=== PATIENT | female | born 1985 ===

== ENCOUNTER 2018-04-08 23:33 | Inpatient (IN) | payer MEDICAID ==
[2018-04-08] MEDS: Lactated Ringer's 1,000 ML IV SCH (23:35)
[2018-04-08 23:37] VITALS: BMI 22.2
[2018-04-08] MEDS ORDERED: Lactated Ringer's 1,000 ML IV SCH (23:45)
[2018-04-08] MEDS ORDERED: ceFAZolin 1 GM in Sodium Chloride 0.9% 100 ML IVPB ONE (23:46)
[2018-04-08 23:56] LABS: BASO # 0.1 K/uL (0.0-0.2); BASO % 0.7 % (0.0-2.0); EOS # 0.1 K/uL (0.0-0.7); HEMOGLOBIN 12.3 g/dL (12.0-16.0); LYMPH # 2.3 K/uL (1.0-4.3); LYMPH % 25.6 % (20.0-40.0); MEAN CELL VOLUME 93.6 fl (81.0-99.0); MEAN CORPUSCULAR HEMOGLOBIN 31.4 pg (27.0-31.0); MEAN CORPUSCULAR HGB CONC 33.6 g/dL (33.0-37.0); MEAN PLATELET VOLUME 9.7 fl (7.2-11.7); MONO # 0.6 K/uL (0.0-0.8); MONO % 6.6 % (0.0-10.0); NEUT # 5.9 K/uL (1.8-7.0); NEUT % 66.1 % (50.0-75.0); NRBC % 0.1 % (0.0-0.0); RBC 3.93 Mil/uL (3.80-5.20); RED CELL DISTRIBUTION WIDTH 13.5 % (11.5-14.5); WHITE BLOOD COUNT 8.9 K/uL (4.8-10.8)
[2018-04-09] MEDS: Lactated Ringer's 1,000 ML IV SCH (00:01)
[2018-04-09] MEDS ORDERED: Morphine 1 mg/ml preservative-free Inj(Duramorph) ONE (00:22)
[2018-04-09] MEDS ORDERED: DiphenhydrAMINE 50 mg/ml Inj IVP PRN ×2 (00:53→04:03)
[2018-04-09] MEDS ORDERED: Oxycodone/Acetaminophen 5/325 mg Tab PO PRN (01:23)
--- NOTE | 2018-04-09 01:32 | OBADHP ---
Datetime: 04/08/2018 23:35 Admit Comment, IP Provider: 32 yo EGA 35.1 confirmed with US at 12 weeks presentsa a direct tra nsfer from [facility] due to SROM. Pt reports gross pink fluid per vagina, starting at 4 hours p rior to admission. Reports: FM, CTX; Denies: VB ROS: reports mild pressure like headaches and dizziness. Denies: CP/SOB/N/V/D/C, dysuria PNC: NRafiq Cruz: Denies complications during this . Last visit was today and GBS cultures were sent obhx: SAB at 4 wks pmhx: none famhx: dm soc: denies smoking, etoh, illicit drug use surg: R inguinal hernia repaired x 2 (2011 and 2014); lasix eye and tonsilectomy NKDA Meds: PNV Gen: AAOX3; in mild distress with each contraction Cardiac: S1S2, no murmurs Lungs: CTA bilaterally Abdo: gravid CVA: negative calves nontender Pelvic: grossly ruptured with clear fluid bedside us: breech presentation 32 yo IUP 35.1 SROM -Admit to L_d -plan for c/s -Labs: CBC, T_S -IVF: LR BOLUS 1 L -Abx: Ancef 1 gm IV -Consent obtained by Dr. Ama kay Dr. Ama Gray MD PGY1 Addendum: at 35 weeks and 2 days gestational age presented with spontaneous rupture membranes, 3 cm di lated, and breech presentation. Patient grossly ruptured on exam. Bedside ultrasound confirmed ultras ound. Discussed with patient the need for section due to early labor, ruptured membranes and breech presentation area discussed with patient the risks, benefits, alternatives of surgery and all patient questions answered. Patient consented for procedure. All patient questions answered. Anesthe carley notified. Pelvic Type - PN: Adequate Extremities - PN: Normal Abdomen - PN: Normal Back - PN: Normal Breast - PN: Not Done Lungs - PN: Normal Heart - PN: Normal Thyroid - PN: Not Done Neurologic - PN: Normal HEENT - PN: Normal General - PN: Normal FHR - Baseline A Provider: 130 IP Hx Assessment: The History has been Reviewed and is Current Vital Signs Provider: Reviewed; Within Normal Limits IP Chief Complaint: Uterine contractions; Suspected ruptured membranes NICHD Variability Prov Fetus A: Moderate 6-25bpm NICHD Accel Fetus A IP Provider: [id number] FHR Category Provider Fetus A: Category I NICHD Decel Fetus A IP Provider: None Dilatation, Provider: 3 Genitourinary Exam: Normal DTRs - PN: Not Done IP Adm Impression: , intrauterine ; Ruptured Membranes IP Admit Plan: Admit to unit; Initiate Section protocol
--- NOTE | 2018-04-09 01:59 | OBDS ---
DELIVERY PERSONNEL Delivery Doctor: Miguel Angel Serrato MD Microgrinder Operator: Hanh Pulido RN/ Bucky Land RN Anesthesiologist: Ross Mckinnon MD Resident: Leonardo Gray MATERNAL INFORMATION Delivery Anesthesia: Spinal Medications in Delivery: Pitocin Estimated Blood Loss (ml): 800 Placenta Cultured: No Maternal Complications: Premature Rupture of Membranes Provider Comments: Primary low flap transverse section via Pfannenstiel incision. Patient delivered viable with Apgars of 9 and 9 at one and 5 minutes respectively. Francisco br eech presentation. Delivery uncomplicated. Normal uterus, normal tubes and ovaries bilaterally. Estimated blood loss 800 mL Fluids 1100 mL lactated Ringer's Urine output 900 mL of clear urine No complications. Patient tolerated surgery well. LABOR SUMMARY EDC: 05/12/2018 00:00 No. Babies in Womb: 1 Attempted: No Labor Anesthesia: Spinal LABOR INFORMATION Reason for Induction: Not Applicable Oxytocin: N/A Group B Beta Strep: Not Done Steroids Given: None MEMBRANES Membranes Rupture Method: Spontaneous Rupture of Membranes: 04/08/2018 20:10 Length of Rupture (hrs): 4.53 Amniotic Fluid Color: Clear Amniotic Fluid Amount: Moderate STAGES OF LABOR Stage 3 hrs: 0 Stage 3 min: 1 CSECTION DELIVERY Primary Indication: Breech Presentation Secondary Indication: Other Other Secondary Indication: PPROM, Labor CSection Urgency: Non Elective CSection Incidence: Primary Labor: Labor Elective: Nonelective CSection Incision: Lower Uterine Transverse BABY A INFORMATION Delivery Date/Time: 04/09/2018 00:42 Method of Delivery: Born in Route : No : N/A Forceps: N/A Vacuum Extraction: N/A Shoulder Dystocia : No SHOULDER DYSTOCIA BABY A Delivery Date/Time: 04/09/2018 00:42 PRESENTATION/POSITION BABY A Presentation: Breech Breech Presentation: Francisco PLACENTA INFORMATION BABY A Placenta Delivery Time : 04/09/2018 00:43 Placenta Method of Delivery: Expressed Placenta Status: Delivered SCORES BABY A Heart Rate 1 min: >100 bpm Resp Effort 1 min: Good Cry Reflex Irritability 1 min: Cough or Sneeze or Pulls Away Muscle Tone 1 min: Active Motion Color 1 min: Body Sl[place], Extremities Blue Resuscitation Effort 1 min: Tactile Stimulation SCORE 1 MIN: 9 Heart Rate 5 min: >100 bpm Resp Effort 5 min: Good Cry Reflex Irritability 5 min: Cough or Sneeze or Pulls Away Muscle Tone 5 min: Active Motion Color 5 min: Body Sl[place], Extremities Blue Resuscitation Effort 5 min: Tactile Stimulation SCORE 5 MIN: 9 INFANT INFORMATION BABY A Gestational Age at Delivery: 35.1 Gestational Status: Outcome : Liveborn Condition : Stable Infant Sex: Female IDENTIFICATION/MEDS BABY A ID Band Number: [id number] WEIGHT/LENGTH BABY A Birthweight (gms): 2350 Infant Weight (lb): 5 Weight (oz): 3 CORD INFORMATION BABY A No. Cord Vessels: 3 Nuchal Cord : N/A Infant Cord pH Baby Arterial: 7.33 Cord Blood Taken: Yes Suction: Mouth; Nose ASSESSMENT BABY A Complications: None Physical Findings at Delivery: Within Normal Limits Infant Respirations: Appears Normal Air Crew Supervisor/ALS Called : No Care By: Emery Neely RN Transferred To: Nursery
[2018-04-09] MEDS ORDERED: Lactated Ringer's 1,000 ML IV SCH (04:03)
--- NOTE | 2018-04-09 09:56 | OBPPN ---
Datetime: 04/09/2018 09:52 PP Pain Prov: Within normal limits PP Nausea Prov: Denies PP Flatus Prov: No PP Breasts Prov: Normal PP Heart Prov: Normal PP Lungs Prov: Normal PP Abdomen/Uterus Prov: Normal PP Lochia Prov: Normal PP Vulva/Perineum Prov: Normal PP CVA Tenderness Prov: Normal PP Extremities Prov: Normal PP Comments Phys Exam Prov: Fundus firm under umbilicus Incision clean/dry/intact PP Impression Prov: Normal progression PP Plan Prov: Continue present management PP Progress Note Prov: Patient denies CP, no SOB, no N/V, tolerating PO diet, ambulating minimal, +f oley draining clear urine, abdominal pain tolerable with meds, no flatus A/P POD #0 1. Continue routine orders 2. PErcocet/Motrin prn pain 3. Discontinue scales catheter later today and ambulate 4. ENcourage IP PP Procedures: None Vital Signs Provider PP: Reviewed; Within Normal Limits
[2018-04-09 13:01] LABS: HEMOGLOBIN 12.6 g/dL (12.0-16.0); MEAN CELL VOLUME 93.4 fl (81.0-99.0); MEAN CORPUSCULAR HEMOGLOBIN 31.4 pg (27.0-31.0); MEAN CORPUSCULAR HGB CONC 33.6 g/dL (33.0-37.0); RBC 4.03 Mil/uL (3.80-5.20); RED CELL DISTRIBUTION WIDTH 13.6 % (11.5-14.5); WHITE BLOOD COUNT 12.7 K/uL (4.8-10.8)
--- NOTE | 2018-04-10 11:34 | OBPPN ---
Datetime: 04/10/2018 06:40 PP Pain Prov: Within normal limits PP Nausea Prov: Denies PP Flatus Prov: Yes PP BM Prov: No PP Breasts Prov: Not Done PP Heart Prov: Normal PP Lungs Prov: Normal PP Abdomen/Uterus Prov: Normal PP Lochia Prov: Normal PP Vulva/Perineum Prov: Not Done PP CVA Tenderness Prov: Normal PP Extremities Prov: Normal PP C/S Incision Prov: Normal PP Progress Prov: Abnormal PP Comments Phys Exam Prov: Pt reports inaility to fully express milk from breasts. Formula feeding until then. PP Impression Prov: Normal progression PP Plan Prov: Continue present management PP Progress Note Prov: POD 1 S: 32 yo s/p on 04/09/2018. Pt. is seen and examined at bedside this AM. No over night events. Pt reports mild abdominal pain, but well controlled with pain meds. D/c scales, dressing removed, incision site healing well, no exudate seen, dry and intact. No nausea, advised to advance diet as tolerated. Attempting to breast feeding, reports unable to express milk. Currently bottle fee ding Lochia is similar to menses volume. No bowel movement or passing gas per rectum. Denies fever/ch ills, diarrhea, nausea/vomiting, chest pain, dyspnea, and dizziness. O: VS: stable GEN: NAD Cardio: S1S2, no murmurs Lungs: clear breath sounds b/l, no wheezing Abdomen: BS+, tenderness to palpation. Incision scar noted, well healing with no exudate seen, dry and intact. Uterus is firm and at the level of the umbilicus. EXT: No edema, calves nontender NEURO/PSYCH: AAOx3, no grossly focal deficits, preserved affect and mood. Assessment/Plan: 32 yo s/p 2/2 PPROM on 04/09/2018. Pt remains afebrile, tolerat ing pain with medication, doing well on POD#1. OOB with caution SCDs for DVT prophylaxis, encouraged ambulating Percocet 5/325mg, and Motrin 600mg for pain. Colace 100mg PO BID/Senokot 17.2 mg for constipation Encourage and ambulating f/u CBC post op 12.6/37.6 Tdap before d/c Anticipated d/c to home, 04/12/2018. Case dw OB attending --- Dav Gray MD PGY-[address] Adame: I have evaluated the patient independently and I agree with the above IP PP Procedures: None Vital Signs Provider PP: Reviewed; Within Normal Limits
[2018-04-11] MEDS ORDERED: Tdap Vaccine 0.5 ml Vial (10-64 yrs) IM ONE (09:00)
[2018-04-11] MEDS: Oxycodone/Acetaminophen 5/325 mg Tab PO PRN ×2 (11:11→22:15)
--- NOTE | 2018-04-12 00:13 | OP ---
PROCEDURE DATE: 04/08/2018 PREOPERATIVE DIAGNOSIS: 35-weeks and one 1 day gestational age with premature rupture of membranes, early labor, breech presentation. POSTOPERATIVE DIAGNOSIS: 35-weeks and one 1 day gestational age with premature rupture of membranes, early labor, breech presentation. PROCEDURE: Primary low-fat transverse section via Pfannenstiel incision. OPERATIVE FINDINGS: Viable with Apgars of 9 and 9 at 1 and 5 minutes respectively, front breech presentation, normal uterus, normal tubes and ovaries bilaterally. ESTIMATED BLOOD LOSS: 800 mL. FLUIDS: 1100 mL Lactated Ringers. URINE OUTPUT: 900 mL of clear urine at the end of procedure. COMPLICATIONS: None. SURGEON: Medardo Serrato MD TYPE OF ANESTHESIA: Spinal. ANESTHESIA ADMINISTERED BY: Dr. Mckinnon. COMPLICATIONS: None. DESCRIPTION OF PROCEDURE: The patient was taken to the operating room where spinal anesthesia was found to be adequate. The patient was prepped and draped in normal sterile fashion in the dorsal supine position with leftward tilt. A Pfannenstiel skin incision was made with scalpel. This was carried down through to the underlying layer of fascia with a scalpel. Midline dissection was made in the fascial layer of the scalpel. The fascial incision was then extended bilaterally with curved Mata scissors. The fascial layer was from the rectus muscles, both bluntly and sharply with curved Mata scissors. The rectus muscles were at the midline. The peritoneum was then identified, tented upward with Aurora clamps x2, and entered sharply with Metzenbaum scissors. This peritoneum incision was then extended superiorly and inferiorly with good visualization of the urinary bladder. Bladder blade was inserted into the abdomen. The vesicouterine peritoneum was then identified, tented up with Aurora clamps x2, entered sharply with Metzenbaum scissors. The peritoneum incision was then extended bilaterally with Metzenbaum scissors. The Deerfield retractor was placed over the urinary bladder. The uterus was incised with the scalpel. The uterine incision was extended bilaterally bluntly. The breech of the infant was delivered without complication. The lower extremities were flexed and delivered without complication. The upper extremities were flexed across the anterior cervix of the infant bilaterally and delivered without complication. The head was flexed and delivered without complication. The cord was clamped and cut. The infant was handed off to the awaiting telegraph installer. Cord gases were collected. Cord blood was collected. The placenta was removed manually. The uterus was cleared of all clots and debris. The uterine incision was repaired with 0 Vicryl in a running, locked fashion. The second layer with same suture was used to imbricate the first and to obtain excellent hemostasis. The abdomen and pelvis were irrigated with copious amounts of warm normal saline. Reinspection of the uterine incision proved excellent hemostasis. All instruments were removed from the patient. The peritoneal layer was closed with a running stitch of 2-0 chromic. The rectus muscles were reapproximated with a running stitch of 2-0 chromic. The fascial layer was closed with a running stitch of 0 Vicryl. Subcutaneous tissue was closed with a running suture of 3-0 plain. The skin was closed with a subcutaneous tissue of 3-0 Vicryl. The patient tolerated the procedure well. All sponge count, lap count, and needle counts were correct x2. The patient was given 1 gm of Ancef just prior to the beginning of the procedure. There were no complications. The patient was taken to the recovery room in awake and stable condition. Medardo Serrato MD
--- NOTE | 2018-04-12 08:43 | OBPPN ---
Datetime: 04/12/2018 06:07 PP Pain Prov: Within normal limits PP Nausea Prov: Denies PP Flatus Prov: Yes PP BM Prov: Yes PP C/S Incision Prov: Normal PP Progress Prov: Normal PP Impression Prov: Normal progression PP Plan Prov: Discharge PP Progress Note Prov: Pt. is seen and examined at bedside this AM. No overnight events. Pt reports mild abdominal pain, but well controlled with pain meds. No nausea, tolerating well PO. Currently bot tle/breast feeding. Lochia is similar to menses volume. +BM. Denies fever/chills, diarrhea, nausea/vo miting, chest pain, dyspnea, and dizziness. O: VSS GEN: NAD Cardio: S1S2, no murmurs Lungs: clear breath sounds b/l, no wheezing CBC post op 12.6/37.6 Abdomen: BS+, tenderness to palpation. Incision clean, no exudate seen, dry and intact. Steri stri ps in place. Uterus is firm and at the level of the umbilicus. EXT: No edema, calves nontender NEURO/PSYCH: AAOx3, no focal deficits, preserved affect and mood. A/P: 32 yo s/p , afebrile, doing well on POD 3. Discharge to home. OOB with caution SCDs for DVT prophylaxis, encouraged ambulating Percocet 5/325mg, and Motrin 600mg for pain. Colace 100mg PO BID/Senokot 17.2 mg for constipation Encourage . Tdap yesterday. D/C to home. ---YBecerosemarya PGY1. OB Hospitalist Addendum: Pt seen and examined by me. Agree w/ above. POD 3 s/p primary c/s for f rank breech, doing well, breast pumping. Discharge home today. (ES) IP PP Procedures Comments: Tdap Vital Signs Provider PP: Reviewed; Within Normal Limits Vital Signs Provider Details PP: patient pumping Datetime: 04/11/2018 08:29 IP PP Procedures: None
[2018-04-13 11:28] VITALS: BP 114/72; PULSE 79; RESP 20; TEMP 98.7; O2SAT 99
== END 2018-04-12 13:55 | disposition home or self-care (01) | DRG 766 ==
LOC: H.L&D 23:33 → H.OB/GYN 04-09 04:00
PROVIDERS: ADMIT Obstetrics & Gynecology; ATTEND Obstetrics & Gynecology
PROC: 4A1HXCZ Monitoring of Products of Conception, Cardiac Rate, External Approach (ICD-10-PCS; 2018-04-08)
PROC: 10D00Z1 Extraction of Products of Conception, Low, Open Approach (ICD-10-PCS; principal; 2018-04-09)
DX: O60.14X0 Preterm labor third trimester with preterm delivery third trimester, not applicable or unspecified (principal); O42.913 Preterm premature rupture of membranes, unspecified as to length of time between rupture and onset of labor, third trimester; O32.1XX0 Maternal care for breech presentation, not applicable or unspecified; Z37.0 Single live birth; Z3A.35 35 weeks gestation of pregnancy